=== PATIENT | female | born 1965 | race Caucasian/White ===

== ENCOUNTER 2016-07-20 11:18 | Day surgery (SDC) | payer OTHER ==
[2016-07-20] VITALS (13 sets, daily range): BP systolic 84–137; BP diastolic 50–67; PULSE 60–77; RESP 14–18; Ht 160 cm; Wt 83.6 kg
[~2016-07-20] VITALS: Ht 160 cm; Wt 83.6 kg
--- NOTE | 2016-07-20 11:58 | PREOPHP ---
DATE OF ADMISSION: 07/20/2016 HISTORY OF PRESENT ILLNESS: This is a 50-year-old lady, 2, para 2. Her last normal menstru al period was many months ago. She was admitted for D and C, hysteroscopy, possible suction curetta ge. This patient has a history of on and off vaginal bleeding for the last many months. She had an ultrasound done and the ultrasound revealed endometrial thickening of 8 mm and endometrial biopsy w as attempted in the clinic, but the cervix was stenotic, so she was admitted for the above procedure . The procedures were explained to the patient and she understood everything totally. The risks, b enefits, and alternatives were discussed with her as well. PAST PERSONAL HISTORY: No history of TB, asthma. ALLERGIES: NO ALLERGIES. SOCIAL HISTORY: The patient does not smoke. She does not drink. MEDICATIONS: She does not take any drugs. GYNECOLOGIC HISTORY: She had menarche at the age of 17, every 28 days interval, 3 to 4 days' durati on, and moderate in amount. FAMILY HISTORY: Noncontributory. OBSTETRIC HISTORY: She is 2, para 2, with 1 normal delivery and 1 section. REVIEW OF SYSTEMS: CARDIOVASCULAR: No chest pains. RESPIRATORY: No cough. GASTROINTESTINAL: No diarrhea, no vomiting. GENITOURINARY: No dysuria. PHYSICAL EXAMINATION: GENERAL: Reveals a conscious coherent lady and in no acute distress. VITAL SIGNS: Her blood pressure 120/80, pulse rate 80 per minute, respirations 16 per minute. BREASTS, HEART AND LUNGS: Within normal limits. ABDOMEN: Soft. No organomegaly. PELVIC: Revealed the cervix to be firm, uterus of normal size, and adnexa were negative for masses. RECTAL: Exam confirmed the pelvic findings. EXTREMITIES: No pedal edema. ADMITTING DIAGNOSES: Menometrorrhagia and rule out endometrial hyperplasia. PLAN: The patient is planned to have the above procedure. Dictated By: HEIDI BISHOP/KRISHNA Conf#: [id number] DID#: [id number]
[2016-07-20] MEDS ORDERED: MIDAZOLAM 1 MG/ML 2 ML INJ ONE (14:57)
[2016-07-20] MEDS ORDERED: FENTAnyl 50 MCG/ML VIAL ONE (14:57)
[2016-07-20] MEDS ORDERED: PROPOFOL 20 ML ONE (14:57)
[2016-07-20] MEDS ORDERED: DEXAMETHASONE 4 MG/ML 1 ML INJ ONE (15:04)
[2016-07-20] MEDS ORDERED: METOCLOPRAMIDE 10 MG INJ ONE (15:04)
[2016-07-20] MEDS ORDERED: KETOROLAC 30 MG INJ ONE (15:04)
[2016-07-20] MEDS ORDERED: ONDANSETRON 4 MG INJ ONE (15:04)
[2016-07-20] MEDS ORDERED: DIPHENHYDRAMINE 50 MG INJ IV PRN (15:30)
[2016-07-20] MEDS ORDERED: HYDROmorphONE (0.2 MG/ML) 10ML SYG IV PRN ×3 (15:30)
[2016-07-20] MEDS ORDERED: morphine (1 MG/ML) 10ML SYRINGE IV PRN ×3 (15:30)
[2016-07-20] MEDS ORDERED: METOCLOPRAMIDE 10 MG INJ IV PRN (15:30)
[2016-07-20] MEDS ORDERED: EPHEDrine SULFATE 50 MG/5 ML SYG IV PRN (15:30)
[2016-07-20] MEDS ORDERED: MEPERIDINE 25 MG INJ IV PRN (15:30)
[2016-07-20] MEDS ORDERED: OXYCODONE/ACETAMINOPHEN (5/325) TAB PO PRN ×2 (15:30)
[2016-07-20] MEDS ORDERED: ONDANSETRON 4 MG INJ IV PRN (15:30)
[2016-07-20] MEDS ORDERED: LABETALOL HCL 20MG INJ IV PRN (15:30)
[2016-07-20] MEDS ORDERED: ACETAMINOPHEN 325 MG TAB PO PRN (17:00)
--- NOTE | 2016-07-22 03:46 | OPR ---
DATE OF OPERATION: 07/20/2016 PREOPERATIVE DIAGNOSES: 1. Menometrorrhagia. 2. Endometrial thickening. POSTOPERATIVE DIAGNOSES: 1. Menometrorrhagia. 2. Endometrial thickening. 3. Pending pathology report. SURGEON: Kelley Cole MD PUBLIC SPEAKING TEACHER: Wyatt duncan. ANESTHESIA: General. OPERATION PERFORMED: D and C hysteroscopy. OPERATIVE TECHNIQUE: Under general anesthesia, the patient was prepped and draped in the usual [facility] ion for vaginal surgery. Pelvic exam under anesthesia revealed the cervix to be firm, uterus of nor mal size, and adnexa were negative for masses. The heavy weight vaginal retractor was put in place, and the anterior lip of the cervix was grasped with an Allis clamp. Endocervical dilatation up to Hegar 5 was proceeded. The endocervix was noted to be very stenotic and tight. Then, the hysterosc ope was inserted inside the uterine cavity and connected with a light source and distended with norm al saline. There were no polyps nor fibroids seen. The uterine lining was noted to be very smooth and pale looking. Endocervical curettage was performed, and a small amount of tissue was obtained. Endometrial curettage was performed, and a lot of tissue was obtained. The suction cannot be done as the 7 mm suction could not pass up to the endocervical canal. The uterus was intact during and a fter the procedure. The patient tolerated the procedure well. Estimated blood loss was minimal. V ital signs were stable during and after the procedure. Dictated By: KELLEY BISHOP/KRISHNA Conf#: [id number] DID#: [id number]
== END 2016-07-20 17:41 | disposition home or self-care (01) ==
LOC: SDS 11:18
PROVIDERS: ATTEND Obstetrics & Gynecology
DX: N72 Inflammatory disease of cervix uteri (principal)
CPT/HCPCS: 58558; 84703; 86900; 86901; 88305; J1100; J1885; J2175; J2250; J2405; J2765; J3010; Z7512; Z7610

== ENCOUNTER 2018-05-15 06:22 | Day surgery (SDC) | payer OTHER ==
[~2018-05-15] VITALS: Ht 160 cm; Wt 84.6 kg
[2018-05-15] VITALS (14 sets, daily range): BP systolic 95–146; BP diastolic 40–82; PULSE 60–78; RESP 13–22; Ht 160 cm; Wt 84.6 kg
--- NOTE | 2018-05-15 06:37 | PREOPHP ---
DATE OF ADMISSION: 05/15/2018 HISTORY OF PRESENT ILLNESS: This is a 52-year-old lady, 2, para 2. Her last normal menstrua l period was a few days prior to admission. She was admitted for D and C, hysteroscopy and suction c urettage. This patient bleeds very heavy with her periods associated with blood clots. She had an u ltrasound done and the ultrasound showed endometrial thickening. She had an attempted endometrial bi opsy, but was unsuccessful because the cervix was stenotic, so she was admitted for a D and C, hyster oscopy and suction curettage. PAST PERSONAL HISTORY: No history of TB, asthma. ALLERGIES: NO ALLERGIES. SOCIAL HISTORY: The patient does not smoke. She does not drink. MEDICATIONS: She does not take any drugs. GYNECOLOGIC HISTORY: She had menarche at the age of 12, every 28 days interval, 3 to 4 days duration , and moderate in amount. FAMILY HISTORY: Noncontributory. PAST OBSTETRICAL HISTORY: She is 2, para 2 with 1 section. REVIEW OF SYSTEMS: CARDIOVASCULAR: No chest pains. RESPIRATORY: No cough. GASTROINTESTINAL: No diarrhea, no vomiting. GENITOURINARY: No dysuria. PHYSICAL EXAMINATION: GENERAL: Reveals a conscious, coherent lady and in no acute distress. VITAL SIGNS: Her blood pressure 120/80, pulse rate 80 per minute, respirations 16 per minute. BREASTS, HEART AND LUNGS: Within normal limits. ABDOMEN: Soft. No organomegaly. PELVIC: Revealed the cervix to be firm, uterus of normal size, and adnexa were negative for masses. RECTAL: Confirmed the pelvic findings. EXTREMITIES: No pedal edema. ADMITTING DIAGNOSIS: Obesity and endometrial thickening, menorrhagia, rule out endometrial hyperplas ia. PLAN: The patient was planned to have a D and C, hysteroscopy and suction curettage. The procedures were explained to the patient and she understood everything totally. The risks, benefits and altern atives were discussed with her as well. Dictated By: HEIDI BISHOP/KRISHNA Conf#: [id number] DID#: [id number]
--- NOTE | 2018-05-15 07:56 | PREAC ---
Date/Time of Note Date/Time of Note DATE: 05/15/18 TIME: 07:55 Anesthesia Eval and Record Evaluation Time Pre-Procedure Interview DATE: 05/15/18 TIME: 07:55 Age 52 Sex female NPO: 8 hrs Preoperative diagnosis endometrial thickening Planned procedure D and C hysteroscopy Past Medical History Past Medical History: Includes GI: Obesity Surgery & Anesthesia Issues No known issue Meds Anticoagulation: No Beta Allison within 24 hr: No Reason Beta Allison not given: Pt. not on B-Allison No Active Prescriptions or Reported Meds Meds reviewed: Yes Allergies Coded Allergies: No Known Allergy (Unverified , 07/20/16) Allergies Reviewed: Yes Labs/Studies Labs Reviewed: Reviewed by anesthesiologist Blood Bank Test 05/14/18 12:10 Antibody Screen NEGATIVE Blood Type O POSITIVE test: Negative Studies: ECG Pre-procedure Exam Airway: Adequate mouth opening, Adequate thyromental dist Mallampati: Mallampati II Teeth: Normal Lung: Normal Heart: Normal ASA Physical Status ASA physical status: 2 Emergency: None Planned Anesthetic General/MAC: LMA Planned Pain Management Parenteral pain med, Local by surgeon Pre-operative Attestations Prior to commencing anesthesia and surgery, the patient was re-evaluated, there was verification of: *The patient's identity *The results of appropriate recent lab work and preoperative vital signs *The above evaluation not changing prior to induction *Anesthetic plan, risk benefits, alternative and complications discussed with patient/family; questions answered; patient/family understands, accepts and wishes to proceed. JAZZY OSCAR May 15, 2018 07:56
[2018-05-15] MEDS ORDERED: DEXAMETHASONE 4 MG/ML 5 ML INJ ONE (08:06)
[2018-05-15] MEDS ORDERED: PROPOFOL 20 ML ONE (08:06)
[2018-05-15] MEDS ORDERED: ONDANSETRON 4 MG INJ ONE (08:06)
[2018-05-15] MEDS ORDERED: LIDOCAINE 2% (SDV) 5 ML INJ ONE (08:06)
[2018-05-15] MEDS ORDERED: LABETALOL HCL 20MG INJ IV PRN (08:30)
[2018-05-15] MEDS ORDERED: MEPERIDINE 25 MG INJ IV PRN (08:30)
[2018-05-15] MEDS ORDERED: OXYCODONE/ACETAMINOPHEN (5/325) TAB PO PRN ×2 (08:30)
[2018-05-15] MEDS ORDERED: ONDANSETRON 4 MG INJ IV PRN (08:30)
[2018-05-15] MEDS ORDERED: ALBUTEROL 0.083% (NEB) 2.5 MG/3 ML AMP HHN PRN (08:30)
[2018-05-15] MEDS ORDERED: FENTAnyl 50 MCG/ML VIAL IV PRN ×3 (08:30)
--- NOTE | 2018-05-15 08:48 | SIPON ---
Date/Time of Note Date/Time of Note DATE: 05/15/18 TIME: 08:47 Operative Report Preoperative Diagnosis ENDOMETRIAL THICKENING MENORRHAGIA Postoperative Diagnosis ENDOMETRIAL THICKENING MENORRHAGIA Operation/Procedure Performed D&C HYSTEROSOCPY SUCTION CURETTAGE Surgeon see signature line funeral home assistant PUTTY TINTER MAKER Anesthesia: general Estimated blood loss: minimal Transfusion Required none Specimen ECC EMC SUCTION CURETTAGE Grafts/Implants none Complications none HEIDI SCANLON MD May 15, 2018 08:48
[2018-05-15] MEDS ORDERED: ACETAMINOPHEN 325 MG TAB PO PRN (09:00)
--- NOTE | 2018-05-15 09:15 | PAC ---
Date/Time of Note Date/Time of Note DATE: 05/15/18 TIME: 09:14 Post-Anesthesia Notes Post-Anesthesia Note Last documented vital signs pacu bp 95/70 hr 82 rr 16 temp 97.6 spo2 97% Activity: WNL Respiratory function: WNL Cardiovascular function: WNL Mental status: Baseline Pain reasonably controlled: Yes Hydration appropriate: Yes Nausea/Vomiting absent: Yes JAZZY OSCAR May 15, 2018 09:15
--- NOTE | 2018-05-15 23:48 | OPR ---
DATE OF OPERATION: 05/15/2018 PREOPERATIVE DIAGNOSES: 1. Endometrial thickening, rule out endometrial hyperplasia. 2. Menorrhagia. POSTOPERATIVE DIAGNOSES: 1. Endometrial thickening, rule out endometrial hyperplasia. 2. Menorrhagia. 3. Pending pathology report. SURGEON: Heidi Cole MD [employer] SUPERVISOR: Wyatt duncan. ANESTHESIA: General. OPERATION PERFORMED: Fractional dilatation and curettage, hysteroscopy and suction curettage. OPERATIVE TECHNIQUE: Under general anesthesia, the patient was prepped and draped in the usual [facility] on for vaginal surgery. Pelvic exam under anesthesia revealed the cervix to be firm, uterus of heidi l size, and adnexa were negative for masses. Then, the heavyweight vaginal retractor was put in plac e and the anterior lip of the cervix was grasped with an Allis clamp. Endocervical dilatation up to Hegar 5 was proceeded. Uterus was sounded to about 3 inches. Then, the hysteroscope was inserted in side the uterine cavity and connected with a light source. The uterus was distended with normal sali ne. There were no polyps, no fibroids seen. Then, endocervical curettage was done and a small amoun t of tissue was obtained. Endometrial curettage was done and a good amount of tissue was obtained. Suction tip size 6 was inserted inside the uterine cavity, and suction curettage was done. Good amou nt of tissue was obtained. The uterus was intact during and after the procedure. The patient tolera mildred the procedure well. Estimated blood loss was minimal. Vital signs were stable during and after the procedure. Dictated By: HEIDI BISHOP/KRISHNA Conf#: [id number] DID#: [id number]
== END 2018-05-15 10:35 | disposition home or self-care (01) ==
LOC: SDS 06:22
PROVIDERS: ATTEND Obstetrics & Gynecology
DX: N92.0 Excessive and frequent menstruation with regular cycle (principal); R93.89 Abnormal findings on diagnostic imaging of other specified body structures
CPT/HCPCS: 58558; 84702; 86850; 86900; 86901; 88305; J1100; J2405; J3010; Z7512; Z7610